=== PATIENT | female | born 1980 | race Caucasian/White ===

== ENCOUNTER 2019-10-10 12:02 | Emergency (ER) | payer MEDICAID, OTHER ==
[2019-10-10] MEDS ORDERED: Acetaminophen 500 MG Tab PO ONE (12:22)
[2019-10-10] MEDS ORDERED: Ibuprofen 800 MG Tab PO ONE (12:23)
[2019-10-10] MEDS ORDERED: Acetaminophen 500 MG Tab ONE (12:28)
[2019-10-10] MEDS ORDERED: Ibuprofen 800 MG Tab ONE (12:34)
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
== END 2019-10-10 13:03 | disposition home or self-care (01) ==
LOC: LB.ED 12:02
DX: T22.011A Burn of unspecified degree of right forearm, initial encounter (principal); X19.XXXA Contact with other heat and hot substances, initial encounter; Y92.89 Other specified places as the place of occurrence of the external cause; Y99.0 Civilian activity done for income or pay
CPT/HCPCS: 99283; A9270